=== PATIENT | female | born 1985 | race Caucasian/White ===

== ENCOUNTER 2017-06-28 18:31 | Emergency (ER) | payer OTHER ==
[~2017-06-28] VITALS: Ht 162.6 cm; Wt 73.3 kg
[2017-06-28 19:57] LABS: HEMATOCRIT 38.3 % (36.0-46.0); MCH 28.2 PG (29.0-34.0); MCHC 31.3 G/DL (30.0-36.0); MCV 90.1 FL (83-99); MEAN PLAT.VOLUME 12.1 uM^3 (9.5-12.4); PLATELET COUNT 284 K/uL (156-360); RBC DIS.WIDTH-CV 13.3 % (11.8-14.6); RBC DIS.WIDTH-SD 43.9 % (39-53); RED BLOOD COUNT 4.25 M/uL (3.80-5.20); WHITE BLOOD COUNT 11.8 K/uL (4.1-10.2)
[2017-06-28 20:05] LABS: ADD MIUA? NO; BILIRUBIN NEGATIVE; BLOOD NEGATIVE; COLOR STRAW ((YELLOW)); GLUCOSE (STRIP) NEGATIVE; KETONES NEGATIVE; LEUKOCYTES NEGATIVE; NITRITE NEGATIVE; PROTEIN (STRIP) NEGATIVE; SPECIFIC GRAVITY 1.005 (1.000-1.030); UROBILINOGEN 0.2 MG/DL (0.2-1.0)
[2017-06-28 20:06] LABS: CHLORIDE 106 mEq/L (99-109); POTASSIUM 4.1 mEq/L (3.7-5.4); SODIUM 139 mEq/L (136-147)
[2017-06-28 20:08] LABS: GLUCOSE 108 mg/dL (70-99)
[2017-06-28 20:10] LABS: ANION GAP 9 MEQ/L (2-14)
[2017-06-28 20:12] LABS: GFR ESTIMATE (CALCULATED) > 59 mL/min/
[2017-06-28 20:13] LABS: UREA NITROGEN (BUN) 8 mg/dL (9-23)
[2017-06-28 20:20] LABS: QUANTITATIVE HCG < 4.0 MIU/ML
[2017-06-28] MEDS ORDERED: INDOCIN25 MG PO (21:14)
[2017-06-28] MEDS ORDERED: VALIUM5 MG PO (21:14)
[2017-06-28] MEDS ORDERED: LIDODERM 5% P1 PATCH TD (21:14)
[2017-06-28] MEDS ORDERED: PREDNISONE20 MG PO (21:14)
[2017-06-28 21:46] VITALS: BP 132/77
== END 2017-06-28 21:50 | disposition home or self-care (01) ==
LOC: EME 18:31
PROVIDERS: Physician Assistant
DX: S39.012A Strain of muscle, fascia and tendon of lower back, initial encounter (principal); X58.XXXA Exposure to other specified factors, initial encounter; F17.200 Nicotine dependence, unspecified, uncomplicated; Z88.0 Allergy status to penicillin
CPT/HCPCS: 80048; 81003; 84702; 85027; 99281; 99284; J7512

== ENCOUNTER 2017-12-04 16:18 | Inpatient (IN) | payer OTHER ==
[~2017-12-04] VITALS: Ht 162.6 cm; Wt 72.2 kg
[~2017-12-04 16:18] MED LIST: INDOCIN25 MG PO; LIDODERM 5% P1 PATCH TD; PREDNISONE20 MG PO; VALIUM5 MG PO
[2017-12-04 19:33] LABS: HEMATOCRIT 41.4 % (36.0-46.0); MCHC 31.4 G/DL (30.0-36.0); RBC DIS.WIDTH-CV 13.5 % (11.8-14.6); RBC DIS.WIDTH-SD 44.1 % (39-53); RED BLOOD COUNT 4.65 M/uL (3.80-5.20)
[2017-12-04 19:49] LABS: CHLORIDE 108 mEq/L (99-109); POTASSIUM 4.2 mEq/L (3.7-5.4); SODIUM 143 mEq/L (136-147)
[2017-12-04 19:51] LABS: GLUCOSE 120 mg/dL (70-99)
[2017-12-04 19:54] LABS: SERUM ETHYL ALCOHOL < 10 mg/dL
[2017-12-04 19:55] LABS: CREATININE 0.9 mg/dL (0.6-1.3); GFR ESTIMATE (CALCULATED) > 59 mL/min/
[2017-12-04 19:57] LABS: UREA NITROGEN (BUN) 6 mg/dL (9-23)
[2017-12-04 19:58] LABS: ACETAMINOPHEN (TYLENOL) < 10 mcg/mL (10-30); SALICYLATE < 5.0 MG/DL (15-30)
[2017-12-04 20:49] LABS: PLAT.SUFFICIENCY ADEQUATE; PLATELET COUNT 260 K/uL (156-360)
[2017-12-04 21:46] LABS: AMPHETAMINE PRESUMPTIVE POSITIVE (500 ng/mL); COCAINE NEGATIVE (150 ng/mL); METHAMPHETAMINE NEGATIVE (500 ng/mL); OPIATES (MORPHINE) NEGATIVE (100 ng/mL); PHENCYCLIDINE NEGATIVE (25 ng/mL); THC CANNABINOIDS NEGATIVE (50 ng/mL)
[2017-12-04 21:47] LABS: BARBITURATES NEGATIVE (200 ng/mL); BENZODIAZEPINES NEGATIVE (150 ng/mL); BUPRENORPHINE NEGATIVE (10 ng/mL); METHADONE NEGATIVE (200 ng/mL); OXYCODONE NEGATIVE (100 ng/mL); PROPOXYPHENE NEGATIVE (300 ng/mL); TRICYCLIC ANTIDEPRESSANTS NEGATIVE (300 ng/mL)
[2017-12-04] MEDS ORDERED: LITHIUM CARBON300 M1 PO (22:54)
[2017-12-04] MEDS ORDERED: CYMBALTA60 MG PO (22:55)
[2017-12-04] MEDS ORDERED: LITHIUM CARBON450 MG PO (22:55)
[2017-12-04] MEDS ORDERED: VYVANSE60 MG PO (22:56)
[2017-12-04] MEDS ORDERED: LATUDA80 MG PO (22:56)
[2017-12-05 02:39] VITALS: BP 125/78
== END 2017-12-05 02:40 | DRG 885 ==
LOC: EME 16:18 → EDOF 18:10
PROVIDERS: Emergency Medicine
DX: F31.9 Bipolar disorder, unspecified (principal); R45.851 Suicidal ideations; F17.200 Nicotine dependence, unspecified, uncomplicated
CPT/HCPCS: 80048; 84999; 85027; 90837; 99281; 99285; G0480